=== PATIENT | female | born 1985 | race Caucasian/White ===

== ENCOUNTER 2016-07-26 15:39 | Emergency (ER) | payer BC ==
[2016-07-26 15:48] VITALS: BMI 38.9
--- NOTE | 2016-07-26 16:29 | PDOC ---
History of Present Illness - General Chief Complaint: Vaginal Bleeding Stated Complaint: 4 WKS PRG/VAGINAL BLEED Time Seen by Provider: 07/26/16 15:54 History Source: Patient - History of Present Illness Timing/Duration: reports: getting worse Past History - Past Medical History Allergies/Adverse Reactions: Allergies Allergy/AdvReac Type Severity Reaction Status Date / Time No Known Allergies Allergy Verified 07/26/16 15:48 Home Medications: Ambulatory Orders Vit Calc,Iron,Folic [ Vitamins] 1 each PO DAILY 07/26/16 Other medical history: NONE - Psycho/Social/Smoking Cessation Hx Anxiety: No Suicidal Ideation: No Smoking History: Never smoked Hx Alcohol Use: No Drug/Substance Use Hx: No Substance Use Type: None Review of Systems - Review of Systems Constitutional: No: Chills, Fever ABD/GI: Yes: Nausea, Vomiting, Abdominal cramping : No: Dysuria *Physical Exam - Vital Signs Last Vital Signs Temp Pulse Resp BP Pulse Ox 98.6 F 90 20 120/75 100 07/26/16 15:45 07/26/16 15:45 07/26/16 15:45 07/26/16 15:45 07/26/16 15:45 - Physical Exam General Appearance: Yes: Appropriately Dressed. No: Apparent Distress HEENT: positive: Normal Voice Neck: positive: Supple Respiratory/Chest: negative: Respiratory Distress Female Pelvic Exam: positive: normal external exam, cervical os closed, vaginal bleeding (small amount of vag bleed, no clots). negative: CMT, adnexal tenderness Gastrointestinal/Abdominal: positive: Tender (minimal ttp diffusely to suprapubic area, NT over mcburneys), Soft Musculoskeletal: negative: CVA Tenderness Extremity: positive: Normal Inspection Integumentary: positive: Dry, Warm Neurologic: positive: Fully Oriented, Alert, Normal Mood/Affect ED Treatment Course - RADIOLOGY Radiology Studies Ordered: Category Date Time Status TRANSVAGINAL US PREG [US] Stat Ultrasound 07/26/16 16:23 Ordered Medical Decision Making - Medical Decision Making 07/26/16 16:26 30-year-old female, on clomid for fertility, , approximately 6 weeks by dates, no care as of yet and coming in with vaginal spotting that worsened today. Also complaining of some pelvic pain since today. Reports intermittent n/v during . Denies any clots, dysuria, fever or chills See exam 1st trimester bleed R/o ectopic vs spon AB vs vag bleed in nl preg Stable in ED Minimal suprapubic tenderness w/ small amount of blood and closed os -beta -T&S -ua -US 07/26/16 17:30 07/26/16 18:34 O+ on T&S, no need for rhogam
[2016-07-26 16:53] LABS: URINE APPEARANCE CLEAR; URINE BILIRUBIN NEGATIVE (NEGATIVE); URINE COLOR YELLOW; URINE GLUCOSE (UA) NEGATIVE (NEGATIVE); URINE KETONE 1+ (NEGATIVE); URINE NITRITE NEGATIVE (NEGATIVE); URINE UROBILINOGEN NEGATIVE E.U./dl (0.2-1.0)
[2016-07-26 16:58] LABS: URINE BLOOD 3+ (NEGATIVE); URINE LEUK ESTERASE TRACE (NEGATIVE); URINE PROTEIN 1+ (NEGATIVE)
[2016-07-26 17:00] LABS: URINE BACTERIA RARE /hpf (NONE SEEN); URINE MUCUS FEW; URINE RBC 18 /hpf (0-3); URINE WBC 11 /hpf (3-5)
--- NOTE | 2016-07-26 20:04 | PDOC ---
*Physical Exam - Vital Signs Last Vital Signs Temp Pulse Resp BP Pulse Ox 98.6 F 90 20 120/75 100 07/26/16 15:45 07/26/16 15:45 07/26/16 15:45 07/26/16 15:45 07/26/16 15:45 ED Treatment Course - ADDITIONAL ORDERS Additional order review: Laboratory Results 07/26/16 07/26/16 07/26/16 16:40 16:25 16:25 Beta HCG, Quant 2226.8 Urine Color Yellow Urine Appearance Clear Urine pH 7.0 Ur Specific Roy 1.025 Urine Protein 1+ H Urine Glucose (UA) Negative Urine Ketones 1+ H Urine Blood 3+ H Urine Nitrite Negative Urine Bilirubin Negative Urine Urobilinogen Negative Ur Leukocyte Esterase Trace H Urine RBC 18 Urine WBC 11 Ur Epithelial Cells Few Urine Bacteria Rare Urine Mucus Few Urine HCG, Qual Positive Blood Type O POSITIVE Antibody Screen Negative Medical Decision Making - Medical Decision Making 07/26/16 20:03 endorsed to follow US and disposition US results pending 07/26/16 20:24 Referring Physician: Nicky Luke Patient Name: Vicki Kauffman THIS IS A PRELIMINARY REPORT FROM [facility] DATE OF SERVICE: 2016-07-26 17:27:29.0 IMAGES: 52 EXAM: OB ULTRASOUND.LESS THAN 14 WEEKS US ENDOVAGINAL US DOPPLER REASON FOR EXAM: Bleeding COMPARISON: none FINDINGS: A single intrauterine gestational sac 5 weeks 2days gestational age is visualized with yolk sac. There is no subchorionic hemorrhage seen. There is no pole seen at this time. Uterus is anteverted measuring 7 point by 4.1 x 5.9 cm. Cervix is closed. Bilateral ovaries are within normal with normal arterial and venous vascular flow Right ovary measures 3.3 x 2.7 x 3.4 cm with simple cyst measuring 1.3 x 0.9 x 1.2 cm Left ovary measures 2.5 x 1.5 x 2.1cm No suspicious pelvic mass or free fluid identified. IMPRESSION: Intrauterine gestational sac with yolk sac seen at this time 5 weeks 2 days gestation. No pole seen. Continue close followup. No free fluid or suspicious pelvic mass THIS DOCUMENT HAS BEEN ELECTRONICALLY SIGNED Sherita Nguyen D.O. 07/26/2016 20:07 KOSTA Farrar Please call Imaging Delivery Room Supervisor [phone] ([phone]) with questions. 07/26/16 20:28 Laboratory Tests 07/26/16 16:40 Urine Color Yellow Urine Appearance Clear Urine pH 7.0 Ur Specific Roy 1.025 Urine Protein 1+ H Urine Glucose (UA) Negative Urine Ketones 1+ H Urine Blood 3+ H Urine Nitrite Negative Urine Bilirubin Negative Urine Urobilinogen Negative Ur Leukocyte Esterase Trace H Urine RBC 18 Urine WBC 11 Ur Epithelial Cells Few Urine Bacteria Rare Urine Mucus Few Patient has no dysuria but has 11 wbc on UA will given Macrobid and send the culture. I discussed the physical exam findings, ancillary test results and final diagnoses with the patient. I answered all of the patient's questions. The patient was satisfied with the care received and felt comfortable with the discharge plan and treatment plan. The Patient agrees to follow up with the primary care physician within 24-72 hours. *DC/Admit/Observation/Transfer Diagnosis at time of Disposition: Threatened in early UTI (urinary tract infection) Qualifiers: Urinary tract infection type: site unspecified Hematuria presence: without hematuria Qualified Code(s): N39.0 - Urinary tract infection, site not specified - Discharge Dispostion Disposition: HOME Condition at time of disposition: Stable - Prescriptions Prescriptions: Nitrofurantoin Monohyd/M-Cryst [Macrobid -] 100 mg PO BID #14 capsule - Patient Instructions Printed Discharge Instructions: DI for Threatened , DI for Urinary Tract Infection (UTI) Additional Instructions: you must follow up with your pmd in 1-2 days, pelvic rest is advised no tampon, sex or douching. If your bleeding become more than 1 pad per hour return to the ED immediately
[2016-07-26 20:20] VITALS: BP 124/74; PULSE 92; TEMP 98.1
[2016-07-26] MEDS ORDERED: NITROFURANTOIN MACROCRYSTAL 50 MG CAPSULE (FP) ONE (20:43)
[2016-07-26] MEDS ORDERED: NITROFURANTOIN MACROCRYSTAL 50 MG CAPSULE (FP) PO SCH (20:45)
== END 2016-07-26 20:57 | disposition home or self-care (01) ==
LOC: JER 15:39
DX: O20.0 Threatened abortion (principal); O23.41 Unspecified infection of urinary tract in pregnancy, first trimester; Z3A.01 Less than 8 weeks gestation of pregnancy
CPT/HCPCS: 36415; 76817-TC; 81003; 81015; 84702; 84703; 86850; 86900; 86901; 87086; 99282-25

== ENCOUNTER 2017-02-18 15:01 | Emergency (ER) | payer BC, OTHER ==
[2017-02-18 15:16] VITALS: BP 143/78; PULSE 89; TEMP 99.3; BMI 37.8
--- NOTE | 2017-02-18 15:16 | PDOC ---
Rapid Medical Evaluation Time Seen by Provider: 02/18/17 15:13 Medical Evaluation: Allergies Allergy/AdvReac Type Severity Reaction Status Date / Time No Known Allergies Allergy Verified 07/26/16 15:48 02/18/17 15:13 The patient presents with a chief complaint of: Vaginal bleeding today. Pt. reports being 6 weeks . LMP 12/31/16. . Denies cramping/abdominal pain. I have performed a brief in-person evaluation of this patient; Pertinent physical exam findings: abdomen non-tender non distended, afebrile I have ordered the following: Beta HCG, CBC, CMP, Type and Screen, Transvaginal US, UA, UC The patient will proceed to the ED for further evaluation.
--- NOTE | 2017-02-18 17:27 | PDOC ---
History of Present Illness - General History Source: Patient Exam Limitations: No Limitations - History of Present Illness Initial Comments: 02/18/17 19:57 Patient is a 36 year old female, whos 6 weeks , with no significant past medical history who presents to the ED with complaints of vaginal bleeding that began this afternoon at 2:30pm. Patient reports experiencing sudden onset of vaginal bleeding this afternoon. She reports vaginal bleeding began with the passing of large clot while on the toilet, followed by intermittent spotting on underwear. Patient currently does not complain of any cramping but does state she has been experiencing LLQ discomfort. She reports having a prior 8 week fetus miscarriage. Denies vaginal discharge, pelvic cramps. Denies nausea, vomiting. Denies fevers , chills. Denies trauma to affected area. Denies any other symptoms. Allergies: None Social history: No smoking. No alcohol. No illicit drugs. Surgical history: None PMD: None <Juarez Khan - Last Filed: 02/18/17 19:57> <Lucero Munguia - Last Filed: 02/18/17 21:30> - General Chief Complaint: Vaginal Bleeding Stated Complaint: VAGINAL BLEEDING Time Seen by Provider: 02/18/17 15:13 Past History <Juarez Khan - Last Filed: 02/18/17 19:57> - Past Medical History COPD: No - Suicide/Smoking/Psychosocial Hx Smoking History: Never smoked Have you smoked in the past 12 months: No Hx Alcohol Use: No Drug/Substance Use Hx: No Substance Use Type: None <Lucero Munguia - Last Filed: 02/18/17 21:30> - Past Medical History Allergies/Adverse Reactions: Allergies Allergy/AdvReac Type Severity Reaction Status Date / Time No Known Allergies Allergy Verified 02/18/17 20:37 Home Medications: Ambulatory Orders NK [No Known Home Medication] 09/07/16 Review of Systems - Review of Systems Able to Perform ROS?: Yes Comments:: 02/18/17 19:57 GENERAL/CONSTITUTIONAL: No fever or chills. No weakness. HEAD, EYES, EARS, NOSE AND THROAT: No change in vision. No ear pain or discharge. No sore throat. GASTROINTESTINAL: No nausea, vomiting, diarrhea or constipation. GENITOURINARY: No dysuria, frequency, or change in urination. CARDIOVASCULAR: No chest pain or shortness of breath. RESPIRATORY: No cough, wheezing, or hemoptysis. MUSCULOSKELETAL: No joint or muscle swelling or pain. No neck or back pain. SKIN: No rash NEUROLOGIC: No headache, vertigo, loss of consciousness, or change in strength/ sensation. ENDOCRINE: No increased thirst. No abnormal weight change. HEMATOLOGIC/LYMPHATIC: No anemia, easy bleeding, or history of blood clots. ALLERGIC/IMMUNOLOGIC: No hives or skin allergy. All Other Systems: Reviewed and Negative <Juarez Khan - Last Filed: 02/18/17 19:57> *Physical Exam - Vital Signs Last Vital Signs Temp Pulse Resp BP Pulse Ox 99.3 F 89 18 143/78 100 02/18/17 15:13 02/18/17 15:13 02/18/17 15:13 02/18/17 15:13 02/18/17 15:13 - Physical Exam Comments: 02/18/17 19:57 GENERAL: Awake, alert, and fully oriented, in no acute distress HEAD: No signs of trauma EYES: PERRLA, EOMI, sclera anicteric, conjunctiva clear ENT: Auricles normal inspection, hearing grossly normal, nares patent, oropharynx clear without exudates. Moist mucosa NECK: Normal ROM, supple, no lymphadenopathy, JVD, or masses LUNGS: Breath sounds equal, clear to auscultation bilaterally. No wheezes, and no crackles HEART: Regular rate and rhythm, normal S1 and S2, no murmurs, rubs or gallops ABDOMEN: Soft, nontender, normoactive bowel sounds. No guarding, no rebound. No masses PELVIC: +Pelvis oss closed. +Blood coming from oss. No clots. No tissues. No adnexal tenderness. No CMT. EXTREMITIES: Normal range of motion, no edema. No clubbing or cyanosis. No cords, erythema, or tenderness NEUROLOGICAL: Cranial nerves II through XII grossly intact. Normal speech, normal gait SKIN: Warm, Dry, normal turgor, no rashes or lesions noted. <Juarez Khan - Last Filed: 02/18/17 19:57> - Vital Signs Last Vital Signs Temp Pulse Resp BP Pulse Ox 99.3 F 89 18 143/78 100 02/18/17 15:13 02/18/17 15:13 02/18/17 15:13 02/18/17 15:13 02/18/17 15:13 <Lucero Munguia - Last Filed: 02/18/17 21:30> ED Treatment Course - LABORATORY CBC & Chemistry Diagram: 02/18/17 17:10 02/18/17 17:10 - ADDITIONAL ORDERS Additional order review: Laboratory Results 02/18/17 02/18/17 02/18/17 17:10 17:10 17:00 Sodium 138 Potassium 4.2 Chloride 105 Carbon Dioxide 26 Anion Gap 7 L BUN 9 Creatinine 0.6 Creat Clearance w eGFR > 60 Random Glucose 94 Calcium 8.8 Total Bilirubin 0.3 AST 18 ALT 38 Alkaline Phosphatase 69 Total Protein 7.5 Albumin 3.7 Beta HCG, Quant 24738.5 Urine Color Dkyellow Urine Appearance Turbid Urine pH 7.0 Ur Specific [place] 1.019 Urine Protein Negative Urine Glucose (UA) Negative Urine Ketones Negative Urine Blood 2+ H Urine Nitrite Negative Urine Bilirubin Negative Urine Urobilinogen 2.0 H Ur Leukocyte Esterase Negative Blood Type O POSITIVE Antibody Screen Negative 02/18/17 17:10 RBC 4.94 MCV 84.7 MCHC 32.8 RDW 15.3 MPV 9.2 Neutrophils % 70.0 Lymphocytes % 22.4 Monocytes % 6.0 Eosinophils % 1.3 Basophils % 0.3 <Juarez Khan - Last Filed: 02/18/17 19:57> - LABORATORY CBC & Chemistry Diagram: 02/18/17 17:10 02/18/17 17:10 <Lucero Munguia - Last Filed: 02/18/17 21:30> Medical Decision Making - Medical Decision Making 02/18/17 18:00 a/p: 31yo at 6weeks with vaginal bleeding -threatened ab workup -confirmed IUP on wednesday with Dr. Kent - discussed with dr. kent who states 6w1d on Wednesday with FHR 110 -small amount of blood in vaginal vault on exam -os closed -labs, type and screen, beta, pelvic preg us -will discuss with Dr. Kent 02/18/17 21:27 re-eval: no passage of further clots pt feeling better u/s shows iup at 6w3d FHR [address] Kent who recommends follow up with him on Wednesday in the office. States out of work until seen in the office. discussed plan with the patient who agrees with the patient. stable for d/c to home Blood type o+ <Lucero Munguia - Last Filed: 02/18/17 21:30> *DC/Admit/Observation/Transfer - Attestations Scribe Attestion: 02/18/17 19:57 Documentation prepared by Juarez Khan, acting as medical translator for Lucero Mungiua DO, MD/. <Juarez Khan - Last Filed: 02/18/17 19:57> - Discharge Dispostion Admit: No - Attestations Physician Attestion: 02/18/17 21:30 I, Dr. Lucero Munguia DO, attest that this document has been prepared under my direction and personally reviewed by me in its entirety. I further attest, that it accurately reflects all work, treatment, procedures and medical decision -making performed by me. <Lucero Munguia - Last Filed: 02/18/17 21:30> Diagnosis at time of Disposition: Threatened in early - Discharge Dispostion Disposition: HOME Condition at time of disposition: Stable - Referrals Referrals: Carlton Kent MD [Staff Physician] - - Patient Instructions Printed Discharge Instructions: DI for Threatened Additional Instructions: Please only do light lifting. Please make an appointment to see Dr. Kent on Wednesday. Please stay out of work until cleared by Dr. Kent. Please return to the ED with any further concerns or worsening bleeding. - Post Discharge Activity Forms/Work/School Notes: Back to Work
[2017-02-18 17:36] LABS: URINE APPEARANCE TURBID; URINE BILIRUBIN NEGATIVE (NEGATIVE); URINE BLOOD 2+ (NEGATIVE); URINE COLOR DKYELLOW; URINE GLUCOSE (UA) NEGATIVE (NEGATIVE); URINE KETONE NEGATIVE (NEGATIVE); URINE LEUK ESTERASE NEGATIVE (NEGATIVE); URINE NITRITE NEGATIVE (NEGATIVE); URINE PROTEIN NEGATIVE (NEGATIVE)
[2017-02-18 17:42] LABS: BASO % 0.3 % (0-2.0); EOS % 1.3 % (0-4.5); HEMATOCRIT 41.8 % (32.4-45.2); HEMOGLOBIN 13.7 GM/dL (10.7-15.3); LYMPH % 22.4 % (8-40); MCH 27.8 pg (25.7-33.7); MCHC 32.8 g/dl (32.0-36.0); MEAN CELL VOLUME 84.7 fl (80-96); MEAN PLT VOLUME 9.2 fl (7.5-11.1); PLATELET COUNT 314 K/MM3 (134-434); RBC 4.94 M/mm3 (3.60-5.2); RDW 15.3 % (11.6-15.6); WHITE BLOOD COUNT 12.2 K/mm3 (4.0-10.0)
[2017-02-18 18:13] LABS: ALBUMIN 3.7 g/dl (3.4-5.0); ANION GAP 7 (8-16); BILIRUBIN,TOTAL 0.3 mg/dL (0.2-1.0); BLOOD UREA NITROGEN 9 mg/dL (7-18); CALCIUM 8.8 mg/dL (8.5-10.1); CHLORIDE 105 mmol/L (98-107); CO2 26 mmol/L (21-32); CREATININE 0.6 mg/dL (0.55-1.02); GLUCOSE,RANDOM 94 mg/dL (74-106); POTASSIUM 4.2 mmol/L (3.5-5.1); SGOT/AST 18 U/L (15-37); SGPT/ALT 38 U/L (12-78); SODIUM 138 mmol/L (136-145); TOT PROT 7.5 g/dl (6.4-8.2)
[2017-02-18 18:28] LABS: ALK PHOS 69 U/L (45-117)
[2017-02-19 00:01] LABS: URINE MUCUS RARE; YEAST MODERATE
== END 2017-02-18 22:07 | disposition home or self-care (01) ==
LOC: JER 15:01
DX: O26.891 Other specified pregnancy related conditions, first trimester (principal); O20.0 Threatened abortion; Z3A.01 Less than 8 weeks gestation of pregnancy
CPT/HCPCS: 36415; 76817-TC; 80053; 81003; 81015; 84702; 85025; 86850; 86900; 86901; 87086; 99281-25

== ENCOUNTER 2017-07-11 09:39 | Inpatient (IN) | payer OTHER ==
[2017-07-11] MEDS ORDERED: BETAMET ACET/BETAMET NA PH 30 MG/5 ML VIAL IM ONE (10:50)
[2017-07-11] MEDS ORDERED: DEXTROSE 5%-LACTATED RINGERS 1,000 ML IV SCH (10:50)
[2017-07-11] MEDS ORDERED: AMPICILLIN - 2 GM in SODIUM CHLORIDE 100 ML IVPB ONE (10:50)
[2017-07-11] MEDS ORDERED: MAGNESIUM 4GM/H20 - 4 GM/100 ML IVPB IVPB ONE ×2 (11:09→11:30)
[2017-07-11] MEDS ORDERED: BETAMET ACET/BETAMET NA PH 30 MG/5 ML VIAL ONE (11:09)
[2017-07-11] MEDS ORDERED: AMPICILLIN SODIUM 2 GM VIAL ONE (11:10)
[2017-07-11] MEDS ORDERED: MAGNESIUM SULFATE 20GM/500ML - 20 GM/500 ML INFUS.BAG IVPB SCH (11:30)
[2017-07-11 11:40] VITALS: BMI 40.8
--- NOTE | 2017-07-11 11:57 | HP ---
Past Medical History - Primary Care Physician PCP:: Carlton Littlejohn - Admission Chief Complaint: 31yo with at EGA 27w0d admitted with advanced cervical dilation. History of Present Illness: Pt with c/o occasional cramps since last night. She presented to L&D for evaluation and had a TVUS that showed very short cervix with amniotic membranes at the os. The speculum exam showed the cervix to be 90% effaced and 2-3cm dilated with amniotic membranes visible at the os. No ROM noted. History Source: Patient, Medical Record Limitations to Obtaining History: No Limitations - Past Medical History MANIFEST CLERK: No: Alzheimer's, CVA, Dementia, Migraine, Multiple Sclerosis, Peripheral Neuropathy, Parkinson's, Seizure, Syncope, TIA, Vertigo, Other Cardiovascular: No: AFIB, Aneurysm, Aortic Insufficiency, Aortic Stenosis, CAD, CHF, Deep Vein Thrombosis, HTN, Hyperlipdemia, NM, Mitral Insufficiency, Mitral Stenosis, Murmur, Pulmonary Hypertension, Other Pulmonary: No: Asthma, Bronchitis, Cancer, COPD, O2 Dependent, Pneumonia, Previously Intubated, Pulmonary Embolus, Pulmonary Fibrosis, Sleep Apnea, Other Gastrointestinal: No: Ascites, Cancer, Constipation, Crohn's Disease, Diverticulitis, Diverticulosis, Esophageal Varices, Gastritis, GERD, GI Bleed, Hemorrhoids, Hiatal Hernia, Inflamatory Bowel Disease, Irritable Bowel Disease, Pancreatitis, Peptic Ulcer Disease, Ulcerative Colitis, Other Hepatobiliary: No: Cirrhosis, Cholelithiasis, Cholecystitis, Choledocholithiasis , Hepatitis A, Hepatitis B, Hepatitis C, Other Renal/: No: Renal Failure, Renal Inusuff, BPH, Cancer, Hematuria, Hemodialysis , Neurogenic Bladder, Renal Calculi, UTI, Other ...: 1 ...Para: 0 ...Term: 0 ...: 0 ...Spon : 1 (SAB at 10wk, no intervention) ...Induced : 0 ...Multiple Gestation: 0 ...LMP: 12/31/16 ... Weeks Gestation by Dates: 27.3 ...EDC by Dates: 10/07/17 ...EDC by Sono: 10/10/17 Heme/Onc: No: Anemia, B12 Deficiency, Bleeding Disorder, Cancer, Current Chemotherapy, Current Radiation Therapy, Hemochromatosis, Hypercoaguable State, Myeloproliferative Synd, Sickle Cell Disease, Sickle Cell Trait, Thrombocytopenia, Other Infectious Disease: No: AIDS, C-Diff, Herpes Zoster, HIV, MRSA, STD's, Tuberculosis, VREF, Other Psych: No: Addictions, Anxiety, Bipolar, Depression, Panic, Psychosis, Schizophrenia, Other Musculoskeletal: No: Bursitis, Chronic low back pain, Hemiparesis, Hemiplegia, Osteoarthritis, Paraplegia, Other Rheumatology: No: Fibromyalgia, Gout, Lupus, Rheumatoid Arthritis, Sarcoidosis, Vasculitis, Other ENT: No: Allergic Rhinitis, Sinusitis, Other Endocrine: No: [place]'s Disease, Ernesto's Disease, Diabetes Insipidus, Diabetes Mellitus, Hyperparathyroidism, Hyperthyroidism, Hypothyroidism, Osteopenia, SIADH, Other Dermatology: No: Basal Cell, Cellulitis, Eczema, Melanoma, Psoriasis, Squamous Cell, Other - Past Surgical History Past Surgical History: Yes: Tonsillectomy (at age 18) Hx Myomectomy: No Hx Transabdominal Cerclage: No - Smoking History Smoking history: Never smoked Have you smoked in the past 12 months: No - Alcohol/Substance Use Hx Alcohol Use: No History of Substance Use: reports: None - Social History Usual Living Arrangement: Yes: With Significant Other ADL: Independent History of Recent Travel: No Home Medications - Allergies Allergies/Adverse Reactions: Allergies Allergy/AdvReac Type Severity Reaction Status Date / Time No Known Allergies Allergy Verified 07/11/17 09:51 - Home Medications Home Medications: Ambulatory Orders Vitamins (Sjr) - 1 tab PO DAILY 07/11/17 Family Disease History - Family Disease History Family History: Denies Review of Systems Findings/Remarks: Well appearing, NAD - Review of Systems Constitutional: reports: No Symptoms Eyes: reports: No Symptoms HENT: reports: No Symptoms Neck: reports: No Symptoms Cardiovascular: reports: No Symptoms Respiratory: reports: No Symptoms Gastrointestinal: reports: No Symptoms Genitourinary: reports: No Symptoms Breasts: reports: No Symptoms Reported Musculoskeletal: reports: No Symptoms Integumentary: reports: No Symptoms Neurological: reports: No Symptoms Endocrine: reports: No Symptoms Hematology/Lymphatic: reports: No Symptoms Psychiatric: reports: No Symptoms Pain Intensity: 0 Physical Exam - Maternity Vital Signs: Vital Signs Temperature 97.9 F 07/11/17 09:44 Pulse Rate 101 H 07/11/17 09:44 Respiratory Rate 17 07/11/17 09:44 Blood Pressure 129/83 07/11/17 09:44 O2 Sat by Pulse Oximetry (%) Constitutional: Yes: Well Nourished, No Distress, Calm, Obese Eyes: Yes: WNL, Conjunctiva Clear, EOM Intact HENT: Yes: WNL, Atraumatic, Normocephalic Neck: Yes: WNL, Supple, Trachea Midline Cardiovascular: Yes: WNL, Regular Rate and Rhythm Lungs: Clear to auscultation, Normal air movement - Abdominal Exam/OB Fundal Height: 28 Number of Fetuses: Single Presentation: Vertex (by US) Contractions: No Heart Rate (range): 140 Heart Rate Location: Midline - Vaginal Exam/OB Vaginal Bleediing: No Speculum Exam: Yes Dilatation (cm): 2.5 Effacement (%): 90 Amniotic Membrane Status: Intact - Physical Exam Musculoskeletal: Yes: WNL Extremities: Yes: WNL Edema: No Integumentary: Yes: WNL Deep Tendon Reflex Grade: Normal +2 ...Motor Strength: WNL Psychiatric: Yes: WNL, Alert, Oriented Hemorrhage Risk Assessment - Risk Factors Medium Risk Factors: Yes: None High Risk Factors: Yes: None Risk Score: 1 Risk Level: Medium Risk Imaging - Results Ultrasound: Report Reviewed, Image Reviewed Assessment/Plan 31yo with at EGA 27w0d admitted with advanced cervical dilation. The pt is not in labor. Fetus requires no intervention. The pt was started on IV abx for GBS prophylaxis, given the first dose of steroids, and started on Mag Sulfate for neuroprophylaxis. Pt is not in labor and appears clinically stable. The fetus is in VTX presentation and requires no intervention. I had a long discussion with pt and her partner. I advised transfer to [facility] for Level 4 NICU and L&D. We discussed the risks of transfer, including delivery, severe prematurity, bleeding, labor, etc. We also discussed the option of observation and possible delivery at [facility]. The pt prefers transfer. i spoke to Dr. Byrd at [facility] who accepted the transfer.
[2017-07-11 12:21] LABS: BASO % 0.2 % (0-2.0); HEMATOCRIT 34.3 % (32.4-45.2); HEMOGLOBIN 11.6 GM/dL (10.7-15.3); LYMPH % 13.8 % (8-40); MCHC 33.8 g/dl (32.0-36.0); MEAN CELL VOLUME 82.7 fl (80-96); MEAN PLT VOLUME 8.8 fl (7.5-11.1); MONO % 6.1 % (3.8-10.2); NEUT % 78.9 % (42.8-82.8); PLATELET COUNT 278 K/MM3 (134-434); RBC 4.14 M/mm3 (3.60-5.2); RDW 15.1 % (11.6-15.6); WHITE BLOOD COUNT 14.9 K/mm3 (4.0-10.0)
[2017-07-11 12:39] LABS: INR 1.03 (0.82-1.09); PROTHROMBIN TIME (PATIENT) 11.6 SEC (9.7-13.0)
[2017-07-11 12:42] LABS: ACTIVATED PTT 27.4 SECONDS (26.9-34.4)
[2017-07-11 12:51] LABS: ANION GAP 11 (8-16); BLOOD UREA NITROGEN 4 mg/dL (7-18); CALCIUM 8.3 mg/dL (8.5-10.1); CHLORIDE 106 mmol/L (98-107); CO2 20 mmol/L (21-32); CREATININE 0.4 mg/dL (0.55-1.02); GLUCOSE,RANDOM 125 mg/dL (74-106); POTASSIUM 3.7 mmol/L (3.5-5.1); SODIUM 137 mmol/L (136-145)
[2017-07-11 12:59] VITALS: BP 123/76; PULSE 97; TEMP 98.6
== END 2017-07-11 13:00 | disposition short-term general hospital (02) ==
LOC: JDEL 09:39 → JLDR 11:02
PROVIDERS: ADMIT Obstetrics & Gynecology; ATTEND Obstetrics & Gynecology
DX: O60.00 Preterm labor without delivery, unspecified trimester (principal)
CPT/HCPCS: 36415; 76801-TC; 76817-TC; 80048; 85025; 85610; 85730; 86593; 86850; 86900; 86901; 96372